=== PATIENT | male | born 1960 | race Caucasian/White ===

== ENCOUNTER 2018-04-19 19:09 | Emergency (ER) | payer BC ==
[2018-04-19] MEDS ORDERED: Aspirin 81 MG Tab.Chew PO ONE (19:10)
[2018-04-19] MEDS ORDERED: Nitroglycerin 0.4 MG Tab.SL SL ONE (19:30)
--- NOTE | 2018-04-19 19:50 | EDM.PDOC ---
ED HPI GENERAL MEDICAL PROBLEM - General Chief Complaint: Chest Pain Stated Complaint: CHEST PAINS Time Seen by Provider: 04/19/18 19:20 Source of Information: Reports: Patient, Family History Limitations: Reports: No Limitations - History of Present Illness INITIAL COMMENTS - FREE TEXT/NARRATIVE: 57-year-old male with a known history of coronary artery disease, previous stent placement presents with chest pain for the past hour and a half. It is substernal radiating to his left arm and into his back, no significant diaphoresis or shortness of breath. He arrived to the emergency room and was immediately given 324 mg of chewable aspirin, and an EKG showed a right bundle branch block with possible ST depression in the anterolateral leads. There are no previous EKGs, however the patient says he has always had a "right bundle branch block". He was moderately hypertensive, 1 sublingual nitroglycerin was given. He has no nausea or vomiting. He continues to smoke of pack a cigarettes a day. Onset: Sudden Quality: Reports: Sharp Severity: Moderate Associated Symptoms: Reports: Chest Pain. 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: Other (see below) Other Treatments COMMERCIAL ENERGY AUDITOR: Tums Across Upper Chest Pain Score (Numeric/FACES): 3 - Related Data Allergies Allergy/AdvReac Type Severity Reaction Status Date / Time No Known Allergies Allergy Verified 04/19/18 19:14 Home Meds: Home Meds Albuterol [Ventolin HFA] 1 puff INH Q4HR PRN 04/19/18 [History] Aspirin [Adult Low Dose Aspirin EC] 81 mg PO DAILY 04/19/18 [History] Fluticasone/Salmeterol [Advair 250-50 Diskus] 1 each IH BID 04/19/18 [History] Ipratropium [Atrovent 0.03% Nasal [place]] 2 spray NASBOTH ASDIRECTED 04/19/18 [ History] Metoprolol Tartrate [Lopressor] 25 mg PO Q12HR 04/19/18 [History] Simvastatin [Zocor] 40 mg PO BEDTIME 04/19/18 [History] Social & Family History - Tobacco Use Smoking Status *Q: Current Every Day Smoker Years of Tobacco use: 40 Packs/Tins Daily: 1 Second Hand Smoke Exposure: Yes - Caffeine Use Caffeine Use: Reports: Soda, Tea - Recreational Drug Use Recreational Drug Use: No ED ROS GENERAL - Review of Systems Review Of Systems: See Below Constitutional: Denies: Fever, Chills HEENT: Reports: Throat Pain (Some mild pain radiating to his neck) Respiratory: Denies: Shortness of Breath Cardiovascular: Reports: Chest Pain. Denies: Palpitations GI/Abdominal: Denies: Abdominal Pain, Nausea, Vomiting Musculoskeletal: Reports: Arm Pain (Bilateral, left worse than right), Back Pain (Some pain radiating to his back) Skin: Reports: No Symptoms Neurological: Denies: Headache ED EXAM, GENERAL - Physical Exam Exam: See Below Exam Limited By: No Limitations General Appearance: Alert, No Apparent Distress Eye Exam: Bilateral Eye: Normal Inspection Head: Atraumatic Neck: Normal Inspection Respiratory/Chest: No Respiratory Distress, Lungs Clear Cardiovascular: Regular Rate, Rhythm, Extra Beats (Frequent extra beats correlating with PVCs) GI/Abdominal: Soft, Non-Tender Extremities: Normal Inspection Neurological: Alert, Oriented Psychiatric: Normal Affect, Normal Mood Skin Exam: Warm, Dry EKG INTERPRETATION Rhythm: NSR ST-T: Depressed (Slight depression in the anterolateral leads) EKG Interpretation Comments: Right bundle branch block and frequent PVCs Course - Vital Signs Last Recorded V/S: Last Vital Signs Temp 97.0 F 04/19/18 21:30 Pulse 101 H 04/19/18 21:30 Resp 18 04/19/18 21:30 BP 143/95 H 04/19/18 21:30 Pulse Ox 96 04/19/18 21:30 - Orders/Labs/Meds Orders: Active Orders 24 hr Category Date Time Status EKG Documentation Completion [RC] ASDIRECTED Care 04/19/18 19:30 Active Ang Chest [CT] Stat Exams 04/19/18 20:14 Taken EKG 12 Lead [EK] Routine Ther 04/19/18 19:30 Ordered Labs: Laboratory Tests 04/19/18 04/19/18 04/19/18 Range/Units 19:30 19:30 19:59 WBC 16.8 H (4.5-11.0) K/uL RBC 6.37 H (4.30-5.90) M/uL Hgb 17.0 H (12.0-15.0) g/dL Hct 49.8 (40.0-54.0) % MCV 78 L (80-98) fL MCH 27 (27-31) pg MCHC 34 (32-36) % Plt Count 236 (150-400) K/uL Neut % (Auto) 67 H (36-66) % Lymph % (Auto) 24 (24-44) % [place] % (Auto) 8 H (2-6) % Eos % (Auto) 0 L (2-4) % Baso % (Auto) 1 (0-1) % Sodium 133 L (140-148) mmol/L Potassium 3.6 (3.6-5.2) mmol/L Chloride 95 L (100-108) mmol/L Carbon Dioxide 23 (21-32) mmol/L Anion Gap 18.6 H (5.0-14.0) mmol/L BUN 15 (7-18) mg/dL Creatinine 1.2 (0.8-1.3) mg/dL Est Cr Clr Drug Dosing 76.34 mL/min Estimated GFR (MDRD) > 60 (>60) Glucose 375 H (74-106) mg/dL Calcium 9.6 (8.5-10.1) mg/dL Total Bilirubin 0.3 (0.2-1.0) mg/dL AST 15 (15-37) U/L ALT 22 (12-78) U/L Alkaline Phosphatase 106 (46-116) U/L Troponin I 0.168 H* (0.000-0.056) ng/mL Total Protein 8.3 H (6.4-8.2) g/dL Albumin 3.9 (3.4-5.0) g/dL Globulin 4.4 H (2.3-3.5) g/dL Albumin/Globulin Ratio 0.9 L (1.2-2.2) Meds: Medications Discontinued Medications Generic Name Dose Route Start Last Admin Trade Name Freq PRN Reason Stop Dose Admin Aspirin 324 mg 04/19/18 19:10 04/19/18 19:10 Aspirin PO 04/19/18 19:11 324 mg ONETIME ONE Administration Clopidogrel Bisulfate 600 mg 04/19/18 21:06 04/19/18 21:14 Plavix PO 04/19/18 21:07 600 mg ONETIME ONE Administration Clopidogrel Bisulfate Confirm 04/19/18 21:16 04/19/18 21:38 Plavix Administered 04/19/18 21:17 Not Given Dose 75 mg .ROUTE .STK-MED ONE Heparin Sodium (Porcine) 4,000 units 04/19/18 21:01 04/19/18 21:13 Heparin Sodium IVPUSH 04/19/18 21:02 4,000 units ONETIME ONE Administration Sodium Chloride 1,000 mls @ 500 mls/hr 04/19/18 20:15 04/19/18 20:50 Normal Saline IV 500 mls/hr ASDIRECTED HAM Administration Sodium Chloride 80 mls @ 3 mls/sec 04/19/18 20:30 04/19/18 20:41 Normal Saline IV 3 mls/sec ASDIRECTED HAM Administration Heparin Sodium/Dextrose 25,000 units in 500 mls @ 20 mls/hr 04/19/18 21:15 21:42 Heparin 25,000 Units In D5w 500 Ml IV 1,000 units/hr TITRATE HAM 20 mls/hr Administration Protocol 1,000 UNITS/HR Iopamidol 100 ml 04/19/18 20:30 04/19/18 20:41 Isovue-370 (76%) IV 100 ml . DIRECTED HAM Administration Nitroglycerin 0.4 mg 04/19/18 19:30 04/19/18 19:39 Nitrostat SL 04/19/18 19:31 0.4 mg ONETIME ONE Administration Sodium Chloride 10 ml 04/19/18 20:23 04/19/18 20:40 Saline Flush FLUSH 10 ml ASDIRECTED PRN Administration Keep Vein Open - Re-Assessments/Exams Free Text/Narrative Re-Assessment/Exam: 04/19/18 20:01 Patient was given a sublingual nitroglycerin, he did get a headache but it did not seem to improve his pain. He was offered morphine but he refused and refused any additional nitroglycerin. His pain was persistent but slowly improved, seemed to be better if he sat up straight. It did not hurt to breathe. His EKG was faxed to cardiology in [place], CBC CMP and troponin were obtained. 04/19/18 20:45 After discussion with cardiology, it was elected to do a CT angiogram of the chest to rule out any aortic involvement, while the patient was in CT his troponin returned 0.16. His pain continued to improve and almost resolved. 04/19/18 21:[address] pain-free. Troponin returned elevated at 0.16, CT angiogram looked normal. He was given oral Plavix, heparin was started and he was sent by ground to [place] for cardiology evaluation. 04/19/18 21:07 Impression: No evidence of pulmonary embolism or aortic dissection. Small bilateral pulmonary nodules. Follow-up should be performed according to the Fleischner society criteria in, but most likely a six-month follow-up is recommended. Please note that all CT scans at this facility use dose modulation, iterative reconstruction, and/or weight-based dosing when appropriate to reduce radiation dose to as low as reasonably achievable. Departure - Departure Time of Disposition: 22:06 Disposition: DC/Tfer to Acute Hospital 02 Reason for Transfer *Q: Other Clinical Impression: Non-STEMI (non-ST elevated myocardial infarction) Referrals: PCP,None [Primary Care Provider] - Forms: ED Department Discharge - My Orders Last 24 Hours: My Active Orders 04/19/18 19:30 EKG Documentation Completion [RC] ASDIRECTED EKG 12 Lead [EK] Routine 04/19/18 20:14 Ang Chest [CT] Stat - Assessment/Plan Last 24 Hours: My Active Orders 04/19/18 19:30 EKG Documentation Completion [RC] ASDIRECTED EKG 12 Lead [EK] Routine 04/19/18 20:14 Ang Chest [CT] Stat
[2018-04-19] MEDS ORDERED: Sodium Chloride 0.9% 1,000 ML IV SCH (20:15)
[2018-04-19] MEDS ORDERED: Sodium Chloride 0.9% 10 ML Syringe FLUSH PRN (20:23)
[2018-04-19] MEDS ORDERED: Sodium Chloride 0.9% 80 ML IV SCH (20:30)
[2018-04-19] MEDS ORDERED: Iopamidol 755 Mg/ML 100 ML Bottle IV SCH (20:30)
[2018-04-19] MEDS ORDERED: Heparin Sodium 5,000 Units/ML Vial IVPUSH ONE (21:01)
[2018-04-19] MEDS ORDERED: Clopidogrel 75 MG Tab PO ONE ×2 (21:01→21:06)
[2018-04-19] MEDS ORDERED: Heparin Sodium/D5W 25,000 UNITS/500 ML BAG IV SCH (21:15)
[2018-04-19] MEDS ORDERED: Clopidogrel 75 MG Tab ONE (21:16)
== END 2018-04-19 21:55 ==
LOC: JP.ED 19:09
DX: I21.4 Non-ST elevation (NSTEMI) myocardial infarction (principal); F17.210 Nicotine dependence, cigarettes, uncomplicated; Z79.82 Long term (current) use of aspirin; Z79.899 Other long term (current) drug therapy
CPT/HCPCS: 36415; 71275; 80053; 84484; 85025; 93005; 96361; 96374; 96376; 99285; A9270; J1644; J7030; Q9967